=== PATIENT | male | born 1945 | race Caucasian/White ===

== ENCOUNTER → 2020-10-11 08:00 | Outpatient (CLI) | payer MEDICARE, OTHER, SELFPAY ==
[2020-10-11] MEDS: COVID-19 VACC #1, MRNA(MOD) 100 MCG/0.5 ML VIAL IM (08:05)
== END ==
PROVIDERS: PCP Orthopaedic Surgery; Visit Provider Internal Medicine
DX: Z23 Encounter for immunization (principal)
CPT/HCPCS: 0011A; 91301

== ENCOUNTER → 2020-11-08 08:00 | Outpatient (CLI) | payer MEDICARE, OTHER, SELFPAY ==
[2020-11-08] MEDS: COVID-19 VACC #2, MRNA(MOD) 100 MCG/0.5 ML VIAL IM (08:05)
== END ==
PROVIDERS: PCP Orthopaedic Surgery; Visit Provider Internal Medicine
DX: Z23 Encounter for immunization (principal)
CPT/HCPCS: 0012A; 91301

== ENCOUNTER → 2023-10-20 13:04 | Outpatient (CLI) | payer MEDICARE, OTHER, SELFPAY ==
[2023-10-20 14:18] LABS: COVID-19 CEPHEID 4-PLEX PCR Negative (Negative); Influenza A - CEPHEID Flu A NEGATIVE (NEGATIVE); Influenza B - CEPHEID Flu B NEGATIVE (NEGATIVE); Respiratory Syncytial Virus Negative (Negative)
== END ==
PROVIDERS: PCP Orthopaedic Surgery; Visit Provider Nurse Practitioner Family
DX: R05.9 Cough, unspecified (principal); R52 Pain, unspecified
CPT/HCPCS: 0241U